=== PATIENT | male | born 1950 | race Caucasian/White ===

== ENCOUNTER 2023-05-05 09:29 | Emergency (ER) | payer MEDICARE ==
[~2023-05-05] VITALS: Ht 180 cm; Wt 72.5 kg
[2023-05-05 09:58] LABS: BASOPHILS % (AUTO) 0 % (0-10); EOSINOPHILS # (AUTO) 0.1 10^3/uL (0.0-0.3); EOSINOPHILS % (AUTO) 1 % (0-10); HEMATOCRIT 26 % (40-54); HEMOGLOBIN 8.5 g/dL (13.3-17.7); LYMPHOCYTES # (AUTO) 1.7 10^3/uL (1.0-4.0); LYMPHOCYTES % (AUTO) 21 % (12-44); MEAN CORPUSCULAR HEMOGLOBIN 32 pg (25-34); MEAN CORPUSCULAR HGB CONC 33 g/dL (32-36); MEAN CORPUSCULAR VOLUME 97 fL (80-99); MEAN PLATELET VOLUME 11.1 fL (9.0-12.2); MONOCYTES # (AUTO) 0.6 10^3/uL (0.0-1.0); MONOCYTES % (AUTO) 7 % (0-12); NEUTROPHILS # (AUTO) 5.9 10^3/uL (1.8-7.8); NEUTROPHILS % (AUTO) 70 % (42-75); PLATELET COUNT 190 10^3/uL (130-400); WHITE BLOOD COUNT 8.5 10^3/uL (4.3-11.0)
--- NOTE | 2023-05-05 10:03 | ED Syncope ---
General Chief Complaint: Dizziness/Syncope Stated Complaint: SYNCOPE Source of Information: Patient Exam Limitations: No Limitations History of Present Illness Date Seen by Provider: May 05, 2023 Time Seen by Provider: 09:37 Initial Comments Patient is a 72-year-old male who presents to the emergency department by ambulance with a chief complaint of facial laceration after a syncopal episode. Patient states that he got up around 3 this morning. He was getting into the bathtub and states that he felt like he got overheated, stood up and then found himself facedown on the bathroom floor. 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 He states that he is still anticoagulated although he cannot recall his current blood thinner. He has been noting increasing swelling and bruising to the right groin with testicular discomfort and scrotal pain. He states he is urinating without difficulty. He does endorse black stools over the last few weeks. He states that he had a colonoscopy prior to his cardiac procedures where they "clipped" some polyps. He is continued to have black stool. He complains of pain superior to the right orbit at the location of the laceration. No significant headache. Denies neck pain. No chest pain or shortness of breath. No vision changes. No extremity weakness. Patient states he's concerned about his recent cognitive ability and attributes it to his pain medications post procedure. He does not like the way his pain medications have been making him feel. Procedures were done at [facility]. Timing/Prior Episodes: Single Episode Today Symptoms Prior to Episode: Other ("over heated") Precipitating Factors: Other (sitting in the bathtub) Loss of Consciousness: Brief (Seconds) Current Symptoms: Back to Normal Allergies and Home Medications Allergies Coded Allergies: droperidol (Verified Allergy, Unknown, 05/05/23) Patient Home Medication List Home Medication List Reviewed: Yes Review of Systems Constitutional: see HPI EENTM: other (facial pain) Respiratory: no symptoms reported Cardiovascular: no symptoms reported Gastrointestinal: no symptoms reported Genitourinary: other (groin pain and swelling) Musculoskeletal: no symptoms reported Skin: other (facial laceration) All Other Systems Reviewed Negative Unless Noted: Yes Past Ouulokz-Snswcp-Cvipff Hx Patient Social History Tobacco Use?: Yes Tobacco type used: Cigarettes Smoking Status: Current Everyday Smoker Substance use?: No Alcohol Use?: No Pt feels they are or have been: No Past Medical History Surgery/Hospitalization HX: MED. HX- HTN SURG. HX- STENT AND AR[place]IC VALVE REPLACEMENT 04/28/23, GALLBLADDER, TONSILS, AND APPENDECTOMY Physical Exam Vital Signs Vital Signs - First Documented 05/05/23 09:29 Temp 35.2 Pulse 80 Resp 14 B/P (MAP) 135/85 (102) Pulse Ox 100 O2 Delivery Room Air Capillary Refill : Height, Weight, BMI Height: '" Weight: lbs. oz. kg; BMI Method: General Appearance: No Apparent Distress, WD/WN HEENT: PERRL/EOMI, Other (bilateral TM's occluded by cerumen) Neck: Normal Inspection, Non Tender Cardiovascular: Regular Rate, Rhythm, Normal Peripheral Pulses Respiratory: Lungs Clear, Normal Breath Sounds, No Accessory Muscle Use, No Respiratory Distress Gastrointestinal: Non Tender, Soft Extremities: Normal Inspection, Normal Range of Motion, No Pedal Edema, Other (significant ecchymoses to the entire groin with enlargement of the right hemiscrotum. unable to palpate the right testicle due to edema) Neurologic/Psychiatric: Alert, Oriented x3, No Motor/Sensory Deficits, Normal Mood/Affect, pattern changer II-XII Norm as Tested Cranial Nerves: Normal Hearing, Normal Speech, PERRL Motor/Sensory: No Motor Deficit, No Sensory Deficit Skin: Warm/Dry, Ecchymosis (groin bilatearlly; lower abdomen; right prox thigh) Procedures/Interventions Wound Location: Face Other Wound Location right eyebrow Wound Length (cm): 5 Wound's Depth, Shape: linear, contused tissue, sub Q Wound Explored: clean Irrigated w/ Saline (ccs): 200 Betadine Prep?: No Anesthesia: Lidocaine w/ Epi Volume Anesthetic (ccs): 6 Suture: Ethlion, Monocryl (5-0) Suture Size: 5-0 Number of Sutures: 12 Layer Closure?: 2 Number Deep Layer Sutures: 4 Sterile Dressing Applied?: Yes Progress Patient tolerated the procedure well. hemostasis achieved Progress/Results/Core Measures Results/Orders Lab Results Laboratory Tests Test 05/05/23 09:45 Range/Units White Blood Count 8.5 4.3-11.0 10^3/uL Red Blood Count 2.63 L 4.30-5.52 10^6/uL Hemoglobin 8.5 L 13.3-17.7 g/dL Hematocrit 26 L 40-54 % Mean Corpuscular Volume 97 80-99 fL Mean Corpuscular Hemoglobin 32 25-34 pg Mean Corpuscular Hemoglobin Concent 33 32-36 g/dL Red Cell Distribution Width 14.7 H 10.0-14.5 % Platelet Count 190 130-400 10^3/uL Mean Platelet Volume 11.1 9.0-12.2 fL Immature Granulocyte % (Auto) 1 % Neutrophils (%) (Auto) 70 42-75 % Lymphocytes (%) (Auto) 21 12-44 % Monocytes (%) (Auto) 7 0-12 % Eosinophils (%) (Auto) 1 0-10 % Basophils (%) (Auto) 0 0-10 % Neutrophils # (Auto) 5.9 1.8-7.8 10^3/uL Lymphocytes # (Auto) 1.7 1.0-4.0 10^3/uL Monocytes # (Auto) 0.6 0.0-1.0 10^3/uL Eosinophils # (Auto) 0.1 0.0-0.3 10^3/uL Basophils # (Auto) 0.0 0.0-0.1 10^3/uL Immature Granulocyte # (Auto) 0.1 0.0-0.1 10^3/uL Prothrombin Time 13.1 12.2-14.7 SEC INR Comment 1.0 0.8-1.4 Activated Partial Thromboplast Time 34 24-35 SEC Sodium Level 140 135-145 MMOL/L Potassium Level 3.3 L 3.6-5.0 MMOL/L Chloride Level 108 H 98-107 MMOL/L Carbon Dioxide Level 21 21-32 MMOL/L Anion Gap 11 5-14 MMOL/L Blood Urea Nitrogen 21 H 7-18 MG/DL Creatinine 0.85 0.60-1.30 MG/DL Estimat Glomerular Filtration Rate 93 BUN/Creatinine Ratio 25 Glucose Level 92 70-105 MG/DL Calcium Level 9.4 8.5-10.1 MG/DL My Orders Orders - MOUNIKA ONEILL MD Ekg Tracing (05/05/23 09:32) Ed Iv/Invasive Line Start (05/05/23 09:48) Cbc With Automated Diff (05/05/23 09:48) Basic Metabolic Panel (05/05/23 09:48) Protime With Inr (05/05/23 09:48) Partial Thromboplastin Time (05/05/23 09:48) Us Scrotum (Testicle) [id number] (05/05/23 09:48) Ct Head/Cervical Spine Wo (05/05/23 09:48) Us Right Low Ext [id number] (05/05/23 ) Lidocaine/Epi 2% 1:100,000 (Xylocaine/Ep (05/05/23 11:45) Lidocaine/Epi 1% 1:100,000 (Xylocaine /E (05/05/23 11:35) Vital Signs/I&O 05/05/23 05/05/23 09:29 13:49 Temp 35.2 35.2 Pulse 80 78 Resp 14 16 B/P (MAP) 135/85 (102) 124/80 Pulse Ox 100 100 O2 Delivery Room Air Room Air Progress Progress Note : Time: 13:20 Progress Note Patient seen and evaluated by me. Evaluation today includes physical exam, EKG, Ultrasounds of the Rt groin and scrotum, CT head and cervical spine without contrast, CBC, BMP, coags. I was also able to review the patient's record from his recent admission at and review his d/c summary and most recent labs. Pertinent physical exam findings include - WDWN male in NAD, oriented, pleasant affable in NAD. He has a large 5cm laceration just superior and through the right eyebrow with mild swelling and some bleeding. It is about 2cm in depth. no bony crepitance of the rbit. EOMI. PERRLA. No other injury to the face/head or neck. Heart is reg, lungs a clear. Abd is soft. No extremity injury. He has significant ecchymoses and swelling in the groin bilaterally - right hemiscrotum is very edematous and tender.Patient is alert with no focal neuro deficits. Ddx based on H&P - arrhythmia, anemia, cerebral contusion/bleed, vasovagal syncope. Labs independently reviewed and interpreted by me. His CBC shows fairly significant anemia - with a HGB of 8.5 - comparatively to his labs at d/c from however, he is improved - as he as about 7.5 at discharge. The scrotal swelling and ecchymoses present today (per review of [facility] notes) appears to be about the same. BMP is normal except for a slightly low potassium at 3.3 and coags are normal. Rad reads of the head and neck CT are normal (age related changes) and U/s of the groin and scrotum do not show evidence of pseudoaneurysm or significant pathology. Radiology does comment on bilateral "orchitis" however, I believe this is due to the amount of blood collected in the groin and scrotum and is reactive and does not warrant antibiotics at this time. Patients laceration was closed in layered fashion. He did not request pain medications. Was monitored throughout his stay with no deterioration in his condition. We were able to make contact with his at the local hotel the couple was staying at and assure him she was safe. We contacted local PD who were able to get the patient back to his . No evidence on workup of any acute brain pathology/dysryhthmia. I suspect this was a vasovagal response as he stated when getting out of the hot bath and standing up. Patient is comfortable with discharge to home. All questions are sought and answered. He assures me he will follow up as directed. Initial ECG Impression Date: May 05, 2023 Initial ECG Impression Time: 09:37 Initial ECG Rate: 78 Initial ECG Rhythm: Normal Sinus Initial ECG Intervals NH interval 156 QRS 100 QTc 408 Initial ECG Impression: Normal Comment No ectopy, no ST segment elevation or depression, normal EKG Diagnostic Imaging Diagonstic Imaging: CT Comments [facility]. [place], [place] NAME: CATHIARTHUR Ricarda [facility] REC#: [id number] PT STATUS: REG ER : 1950 PHYSICIAN: MOUNIKA ONEILL MD ADMIT DATE: 05/05/23/ER Signed Date of Exam:05/05/23 CT HEAD/CERVICAL SPINE WO PROCEDURE: CT head and CT cervical spine without contrast. TECHNIQUE: Multiple contiguous axial images were obtained through the brain and cervical spine without the use of intravenous contrast. Sagittal and coronal reformations through the cervical spine were then performed. Auto Exposure Controls were utilized during the CT exam to meet ALARA standards for radiation dose reduction. INDICATION: Fall. Head and neck pain. COMPARISON: None. FINDINGS: CT head: No large acute territorial ischemia, mass, or hemorrhage. No midline shift or mass effect. The ventricles, cortical sulci, and basilar cisterns are patent and unremarkable. Scalp contusion is seen overlying the right frontal region. The calvarium is intact. The visualized paranasal sinuses are clear. CT cervical spine: No acute fracture or dislocation is seen in the cervical spine. No focal osseous lesions. Vertebral body heights are well-maintained. The craniocervical junction is well-maintained. Moderate degenerative changes are seen in the cervical spine with disc osteophyte complexes and uncovertebral arthropathy. These are greatest at the C5-C6 level with moderate to severe spinal canal stenosis and moderate to severe bilateral foraminal stenosis at this level. Soft tissues of the neck are unremarkable. IMPRESSION: 1. No hemorrhage or focal intra-axial mass. No CT evidence of large acute territorial ischemia. 2. No acute fracture or dislocation in the cervical spine. Dictated by: Dictated on workstation # [id number] Dict: 05/05/23 1029 Trans: 05/05/23 1045 [id number] Interpreted by: FELIPA CLARKE DO Electronically signed by: FELIPA CLARKE DO 05/05/23 1045 Diagonstic Imaging: Ultrasound Comments [facility], [place] NAME: ARTHUR WINKLER [facility] REC#: [id number] PT STATUS: DEP ER : 1950 PHYSICIAN: MOUNIKA ONEILL MD ADMIT DATE: 05/05/23/ER Signed Date of Exam:05/05/23 US RIGHT LOW EXT [id number] INDICATION: Groin pain. Right common femoral artery patent and showed normal pulsatility. The right common femoral vein patent and showed normal pulsatility. No AV fistula, pseudoaneurysm or groin vascular obstruction. No hematoma or fluid collection. IMPRESSION: No post catheterization complication or other acute groin vascular pathology. Dictated by: Dictated on workstation # [id number] Dict: 05/05/23 1131 Trans: 05/05/23 1428 [id number] Interpreted by: FAMILIA JORDAN Electronically signed by: FAMILIA JORDAN 05/05/23 1428 Diagonstic Imaging: Ultrasound Comments [facility]. [place], [place] NAME: ARTHUR WINKLER [facility] REC#: [id number] PT STATUS: DEP ER : 1950 PHYSICIAN: MOUNIKA ONEILL MD ADMIT DATE: 05/05/23/ER Signed Date of Exam:05/05/23 US SCROTUM (Testicle) [id number] PROCEDURE: US Scrotum. TECHNIQUE: Multiple real-time grayscale images were obtained over the scrotum in various projections bilaterally. INDICATION: Swelling and pain. FINDINGS: There is abnormal hypervascularity of the bilateral testicles, suspicious for bilateral orchitis. There is a moderate right and small left hydroceles which appeared simple. No pyocele or abscess. There is some scrotal edema bilaterally. There are multiple epididymal cysts on the right. Left epididymis is suboptimally visualized, likely from swelling of the scrotum. The right epididymis is at least mildly hypervascularized. IMPRESSION: Findings of bilateral orchitis and at least right-sided epididymitis with reactive hydroceles, greater right. No pyocele or abscess. No hernia identified. Scrotal edema is present with no shadowing gas. Dictated by: Dictated on workstation # [id number] Dict: 05/05/23 1132 Trans: 05/05/23 1428 [id number] Interpreted by: FAMILIA JORDAN Electronically signed by: FAMILIA JORDAN 05/05/23 1428 Departure Impression Primary Impression: Vasovagal syncope Additional Impressions: Facial laceration Qualified Codes: S01.81XA - Laceration without foreign body of other part of head, initial encounter Hematoma of groin Qualified Codes: S30.1XXA - Contusion of abdominal wall, initial encounter Disposition: 01 HOME, SELF-CARE Condition: Improved Departure-Patient Inst. Decision time for Depature: 13:23 Referrals: NO,LOCAL PHYSICIAN (PCP/Family) Primary Care Physician Patient Instructions: Vasovagal Response, Laceration Repair With Stitches ED Add. Discharge Instructions: Your stitches will need to come out in 5-6 days. Wash gently twice a day with a mild soap and water. Do not rub the stitches. You can apply a little triple antibiotic ointment for 2 days over the suture line and then they can be open to air. Tylenol extra strength - 2 tablets every 6 hours as needed for pain/mild to moderate headache. If you have any sudden worsening headache with severe nausea and vomiting, return to care/ Emergency Services for re-evaluation. Ice pack to the groin will help swelling and discomfort. You may expect to have mild to moderate headache for a few days with some nausea as related to the head injury. This should improve over the course of a week. MOUNIKA ONEILL MD May 05, 2023 10:03
[2023-05-05 10:09] LABS: POTASSIUM 3.3 MMOL/L (3.6-5.0)
[2023-05-05 10:10] LABS: CALCIUM 9.4 MG/DL (8.5-10.1); PROTHROMBIN TIME PATIENT 13.1 SEC (12.2-14.7)
[2023-05-05 10:14] LABS: CREATININE SERUM 0.85 MG/DL (0.60-1.30)
--- NOTE | 2023-05-05 10:33 | Diagnostic Imaging Report ---
PROCEDURE: CT head and CT cervical spine without contrast. TECHNIQUE: Multiple contiguous axial images were obtained through the brain and cervical spine without the use of intravenous contrast. Sagittal and coronal reformations through the cervical spine were then performed. Auto Exposure Controls were utilized during the CT exam to meet ALARA standards for radiation dose reduction. INDICATION: Fall. Head and neck pain. COMPARISON: None. FINDINGS: CT head: No large acute territorial ischemia, mass, or hemorrhage. No midline shift or mass effect. The ventricles, cortical sulci, and basilar cisterns are patent and unremarkable. Scalp contusion is seen overlying the right frontal region. The calvarium is intact. The visualized paranasal sinuses are clear. CT cervical spine: No acute fracture or dislocation is seen in the cervical spine. No focal osseous lesions. Vertebral body heights are well-maintained. The craniocervical junction is well-maintained. Moderate degenerative changes are seen in the cervical spine with disc osteophyte complexes and uncovertebral arthropathy. These are greatest at the C5-C6 level with moderate to severe spinal canal stenosis and moderate to severe bilateral foraminal stenosis at this level. Soft tissues of the neck are unremarkable. IMPRESSION: 1. No hemorrhage or focal intra-axial mass. No CT evidence of large acute territorial ischemia. 2. No acute fracture or dislocation in the cervical spine. Dictated by: Dictated on workstation # [id number]
--- NOTE | 2023-05-05 11:34 | Diagnostic Imaging Report ---
INDICATION: Groin pain. Right common femoral artery patent and showed normal pulsatility. The right common femoral vein patent and showed normal pulsatility. No AV fistula, pseudoaneurysm or groin vascular obstruction. No hematoma or fluid collection. IMPRESSION: No post catheterization complication or other acute groin vascular pathology. Dictated by: Dictated on workstation # [id number]
[2023-05-05] MEDS ORDERED: LIDOCAINE/EPI 1%-1:100,000 (XYLOCAINE) 20ML ONE (11:35)
--- NOTE | 2023-05-05 11:38 | Diagnostic Imaging Report ---
PROCEDURE: US Scrotum. TECHNIQUE: Multiple real-time grayscale images were obtained over the scrotum in various projections bilaterally. INDICATION: Swelling and pain. FINDINGS: There is abnormal hypervascularity of the bilateral testicles, suspicious for bilateral orchitis. There is a moderate right and small left hydroceles which appeared simple. No pyocele or abscess. There is some scrotal edema bilaterally. There are multiple epididymal cysts on the right. Left epididymis is suboptimally visualized, likely from swelling of the scrotum. The right epididymis is at least mildly hypervascularized. IMPRESSION: Findings of bilateral orchitis and at least right-sided epididymitis with reactive hydroceles, greater right. No pyocele or abscess. No hernia identified. Scrotal edema is present with no shadowing gas. Dictated by: Dictated on workstation # [id number]
[2023-05-05] MEDS ORDERED: LIDOCAINE/EPI 2% 1:100,00 (XYLOCAINE) 20 ML VIAL INJ ONE (11:45)
[2023-05-05] MEDS ORDERED: LIDOCAINE/EPI 2% 1:200,00 (XYLOCAINE) 10 ML VIAL INJ ONE (11:45)
[2023-05-05 13:49] VITALS: BP 124/80
== END 2023-05-05 13:50 | disposition home or self-care (01) ==
LOC: ER 09:31
DX: S01.81XA Laceration without foreign body of other part of head, initial encounter (principal); S30.1XXA Contusion of abdominal wall, initial encounter; R55 Syncope and collapse; F17.210 Nicotine dependence, cigarettes, uncomplicated; Z79.01 Long term (current) use of anticoagulants; W18.30XA Fall on same level, unspecified, initial encounter; Y92.002 Bathroom of unspecified non-institutional (private) residence as the place of occurrence of the external cause
CPT/HCPCS: 36415; 70450; 72125; 76870; 80048; 85025; 85610; 85730; 93005; 93926

== ENCOUNTER 2023-05-31 10:58 | Emergency (ER) | payer MEDICARE ==
[2023-05-31 11:23] VITALS: BP 123/78
== END 2023-05-31 11:24 | disposition home or self-care (01) ==
LOC: EDUNIT# 10:58 → ER 11:01
DX: Z48.02 Encounter for removal of sutures (principal)